=== PATIENT | female | born 1985 | race Hispanic/Latino ===

== ENCOUNTER 2017-03-31 07:29 | Observation (INO) | payer OTHER ==
[~2017-03-31] VITALS: Ht 175.3 cm; Wt 155.0 kg
[2017-03-31] MEDS ORDERED: TYLENOL REGULA325 MG PO (09:25)
[2017-03-31 10:03] LABS: EOSINOPHIL (%) 0.2 % (0-5); HEMATOCRIT 37.6 % (36.0-46.0); IMMATURE GRANULOCYTE (%) 0.5 % (0.0-0.7); IMMATURE GRANULOCYTE COUNT 0.1 K/uL; INSTRUMENT ABS NEUTROPHIL CT 16.1 K/uL; INTER. NORMALIZED RATIO 1.2; LYMPHOCYTE COUNT 1.6 K/uL (1.0-2.8); MCH 19.8 PG (29.0-34.0); MCHC 29.5 G/DL (30.0-36.0); MEAN PLAT.VOLUME 9.4 uM^3 (9.5-12.4); MONOCYTE (%) 3.3 % (3-12); MONOCYTE COUNT 0.6 K/uL (0-0.8); NEUTROPHIL (%) 87.3 % (45-76); NEUTROPHIL COUNT 16.1 K/uL (1.8-6.4); PLATELET COUNT 287 K/uL (156-360); PROTHROMBIN TIME 12.8 SEC (10.2-12.9); RBC DIS.WIDTH-CV 18.7 % (11.8-14.6); RBC DIS.WIDTH-SD 42.6 % (39-53); RED BLOOD COUNT 5.61 M/uL (3.80-5.20); WHITE BLOOD COUNT 18.4 K/uL (4.1-10.2)
[2017-03-31 10:06] LABS: CHLORIDE 106 mEq/L (99-109); POTASSIUM 4.1 mEq/L (3.7-5.4); SODIUM 141 mEq/L (136-147)
[2017-03-31 10:08] LABS: GLUCOSE 112 mg/dL (70-99)
[2017-03-31 10:09] LABS: ANION GAP 14 MEQ/L (2-14)
[2017-03-31 10:12] LABS: GFR ESTIMATE (CALCULATED) > 59 mL/min/
[2017-03-31 10:13] LABS: UREA NITROGEN (BUN) 13 mg/dL (9-23)
[2017-03-31 10:20] LABS: QUANTITATIVE HCG < 4.0 MIU/ML
[2017-03-31 12:12] VITALS: BP 115/73
[2017-03-31 15:38] VITALS: BP 116/68
[2017-03-31 19:20] VITALS: BP 119/65
[2017-03-31 23:05] VITALS: BP 114/69
[2017-04-01 04:47] VITALS: BP 113/68
[2017-04-01 07:36] VITALS: BP 119/75
[2017-04-01 10:00] VITALS: BP 134/66
[2017-04-01 20:47] VITALS: BP 123/72
[2017-04-02 00:05] VITALS: BP 121/68
[2017-04-02 04:27] VITALS: BP 126/66
[2017-04-02 07:52] VITALS: BP 121/73
[2017-04-02 15:22] VITALS: BP 124/67
[2017-04-02] MEDS ORDERED: ENDOCET 5-3251 EACH PO (20:43)
== END 2017-04-02 21:13 | disposition home or self-care (01) ==
LOC: EME 07:29 → EDOF 10:30 → 3EAST 10:30 → EDOF 10:30 → ENRESERV 10:57 → 3EAST 12:34
PROVIDERS: Emergency Medicine
PROC: 0PSF04Z Reposition Right Humeral Shaft with Internal Fixation Device, Open Approach (ICD-10-PCS; principal; 2017-04-01)
DX: S42.351A Displaced comminuted fracture of shaft of humerus, right arm, initial encounter for closed fracture (principal); S54.21XA Injury of radial nerve at forearm level, right arm, initial encounter; W10.9XXA Fall (on) (from) unspecified stairs and steps, initial encounter; E66.9 Obesity, unspecified; Z68.43 Body mass index [BMI] 50.0-59.9, adult; Z88.0 Allergy status to penicillin
CPT/HCPCS: 71010; 72100; 73030; 73060; 73070; 73090; 76000; 80048; 84702; 85025; 85610; 99281; 99285; C1713; G0378; J0131; J0330; J0690; J1170; J2270; J2405; J2795; J3010; J7030